=== PATIENT | male | born 1995 | race African-American/Black ===

== ENCOUNTER 2017-01-16 17:54 | Emergency (ER) | payer MEDICAID ==
[~2017-01-16] VITALS: Ht 170.2 cm; Wt 69.4 kg
[2017-01-16 18:07] VITALS: BP 120/89
[2017-01-16] MEDS ORDERED: PROMETHAZI6.25 MG/1 ORAL (18:21)
[2017-01-16] MEDS ORDERED: AMOXICILLIN500 MG ORAL (18:21)
[2017-01-16] MEDS ORDERED: PROAIR HFA8.5 GM INH (18:21)
[2017-01-16] MEDS ORDERED: PREDNISONE20 MG ORAL (18:21)
[2017-01-16 18:42] VITALS: BP 120/89
--- NOTE | 2017-01-16 19:36 | Emergency Room Report ---
History of Present Illness General Chief Complaint: Upper Respiratory Illness Source: Patient Present Illness [facility] The patient is a 21-year-old male presenting for 2 weeks of subjective fevers, chills, productive cough. He denies any recent travel or sick contacts. Pain is an 8/10 dull ache to the back of the throat and does not radiate. Worse with cough. He denies any other symptoms including nausea, vomiting, neck pain or stiffness, rash Allergies: Coded Allergies: No Known Allergies (Unverified , 11/03/12) Patient History Past Medical History: see triage record Pertinent Family History: none Reviewed Nursing Documentation: PMH: Agreed, PSxH: Agreed Nursing Documentation-PMH Past Medical History: No History, Except For Review of Systems All Other Systems: negative except mentioned in HPI Physical Exam Vital Signs Date Time Temp Pulse Resp B/P (MAP) Pulse Ox O2 Delivery O2 Flow Rate FiO2 01/16/17 18:07 98.6 80 17 120/89 99 Room Air Sp02 EP Interpretation: reviewed, normal General Appearance: no apparent distress, alert, GCS 15, non-toxic Head: normocephalic, atraumatic Eyes: bilateral eye normal inspection, bilateral eye PERRL ENT: hearing grossly normal, no angioedema, uvula midline, nasal congestion, tonsillar swelling, pharyngeal erythema Neck: full range of motion, supple/symm/no masses Respiratory: chest non-tender, lungs clear, normal breath sounds, speaking full sentences Cardiovascular #1: regular rate, rhythm, no edema Musculoskeletal: back normal, gait/station normal, normal range of motion, non- tender Neurologic: alert, oriented x3, responsive, motor strength/tone normal, sensory intact, speech normal Psychiatric: judgement/insight normal, memory normal, mood/affect normal, no suicidal/homicidal ideation Skin: normal color, no rash, warm/dry, well hydrated Lymphatic: adenopathy - cervical Medical Decision Making PA Attestation Dr. Kuhn is my supervising physician. Patient management was discussed with my supervising physician Diagnostic Impression: Primary Impression: Pharyngitis, acute Qualified Codes: J02.9 - Acute pharyngitis, unspecified Additional Impression: Asthma Qualified Codes: J45.20 - Mild intermittent asthma, uncomplicated ER Course The patient is a 21-year-old male presenting for 2 weeks of subjective fevers, chills, productive cough. Differential diagnosis include but not limited to pharyngitis, sinusitis, AOM, bronchitis, PNA Physical exam: Vitals within normal limits. Afebrile. No apparent distress HEENT exam: There is bilateral tonsillar edema, erythema. Uvula midline. Moist mucous membranes. There is bilateral cervical lymphadenopathy. Lungs are clear to auscultation bilaterally Skin is warm and dry. No rash The patient will be discharged home and is given ER precautions. He will be treated for asthma and pharyngitis. Patient will followup with primary care Last Vital Signs Date Time Temp Pulse Resp B/P (MAP) Pulse Ox O2 Delivery O2 Flow Rate FiO2 01/16/17 18:42 98.6 80 17 120/89 99 Room Air Status: improved Disposition: HOME, SELF-CARE Condition: Improved Scripts Amoxicillin* (AMOXIL*) 500 Mg Capsule 500 MG ORAL Q12HR, #20 CAP Prov: EOL MCGINNIS P.A. 01/16/17 Promethazine Hcl (PROMETHAZINE HCL*) 6.25 Mg/5 Ml Syrup 5 ML ORAL Q8H, #120 ML 0 Refills Prov: ELO MCGINNIS P.A. 01/16/17 Prednisone* (PREDNISONE*) 20 Mg Tablet 20 MG ORAL DAILY, #4 TAB 0 Refills Prov: ELO MCGINNIS P.A. 01/16/17 Albuterol Sulfate* (PROAIR HFA*) 8.5 Gm Hfa.aer.ad 2 PUFFS INH Q6H, #8.5 GM 0 Refills Prov: ELO MCGINNIS P.A. 01/16/17 Referrals: [facility] [place],REFERRING (PCP) Patient Instructions: Asthma, Adult, Pharyngitis Additional Instructions: I discussed my findings with the patient. All questions and concerns have been answered. Treatment and medication compliance have been addressed. I advised the patient that they need to follow up with PMD in 3-5 days. Return to ED if pain remains or worsens, cough worsens or remains, you notice blood in your sputum, you notice wheezing, you experience a fever, or if needed for any reason. Patient verbalized understanding of discharge instructions. ELO MCGINNIS Jan 16, 2017 19:36
== END 2017-01-16 18:42 | disposition home or self-care (01) ==
LOC: EMR 18:25
DX: J02.9 Acute pharyngitis, unspecified (principal)
CPT/HCPCS: 99284

== ENCOUNTER 2018-03-14 13:42 | Emergency (ER) | payer MEDICAID ==
[~2018-03-14] VITALS: Ht 172.7 cm; Wt 77.1 kg
[~2018-03-14 13:42] MED LIST: AMOXICILLIN500 MG ORAL; PREDNISONE20 MG ORAL; PROAIR HFA8.5 GM INH; PROMETHAZI6.25 MG/1 ORAL
[2018-03-14] MEDS ORDERED: NKM (13:48)
[2018-03-14 13:51] VITALS: BP 145/82
--- NOTE | 2018-03-14 14:03 | Emergency Room Report ---
History of Present Illness General Chief Complaint: Upper Extremity Injury Source: Patient Present Illness HPI 23-year-old male presents to the emergency department complaining of 7 out of 10 in severity right shoulder pain that has been persistent times one week. Patient reports he felt the pain after playing basketball one day. Patient states she is right-hand dominant he denies trauma or fall. Patient reports achy dull pain he denies bony tenderness. Denies numbness tingling or loss of sensation or gross motor movements of the extremities, incontinence of bowel or bladder. Denies CP, Palpitations, LOC, AMS, dizziness or motor weakness. Allergies: Coded Allergies: No Known Allergies (Unverified , 11/03/12) Patient History Past Medical History: see triage record Past Surgical History: none Pertinent Family History: none Reviewed Nursing Documentation: PMH: Agreed; PSxH: Agreed Nursing Documentation-PMH Past Medical History: No History, Except For Review of Systems All Other Systems: negative except mentioned in HPI Physical Exam Vital Signs Date Time Temp Pulse Resp B/P (MAP) Pulse Ox O2 Delivery O2 Flow Rate FiO2 03/14/18 13:46 98.2 85 20 145/82 97 Room Air Sp02 EP Interpretation: reviewed, normal General Appearance: no apparent distress, alert, GCS 15, non-toxic Head: normocephalic, atraumatic Eyes: bilateral eye normal inspection, bilateral eye PERRL ENT: hearing grossly normal, normal voice Neck: full range of motion Respiratory: lungs clear, normal breath sounds, speaking full sentences Cardiovascular #1: regular rate, rhythm, normal capillary refill Cardiovascular #2: 2+ radial (R), 2+ radial (L) Rectal: deferred Genitourinary: normal inspection Musculoskeletal: back normal, gait/station normal, normal range of motion, tender - TTP to the shoulder/axilla musculature and the pectoralis, no bony ttp , FROM with some mild discomfort, no obvious deformity, step-off, crepitus or palpable masses. Neurologic: alert, oriented x3, responsive, motor strength/tone normal, sensory intact, normal gait, speech normal, grossly normal Psychiatric: judgement/insight normal Skin: normal color, no rash, warm/dry, well hydrated Lymphatic: no adenopathy Medical Decision Making PA Attestation Dr. Benitez is my supervising Physician whom patient management has been discussed with. Diagnostic Impression: Primary Impression: Right shoulder injury Qualified Codes: S49.91XA - Unspecified injury of right shoulder and upper arm , initial encounter Additional Impression: Rotator cuff injury Qualified Codes: S46.001A - Unspecified injury of muscle(s) and tendon(s) of the rotator cuff of right shoulder, initial encounter ER Course 23-year-old male presents to the emergency department complaining of 7 out of 10 in severity right shoulder pain that has been persistent times one week. Patient reports he felt the pain after playing basketball one day. Patient states she is right-hand dominant he denies trauma or fall. Patient reports achy dull pain he denies bony tenderness. Denies numbness tingling or loss of sensation or gross motor movements of the extremities, incontinence of bowel or bladder. Denies CP, Palpitations, LOC, AMS, dizziness or motor weakness. Ddx considered but are not limited to Fracture, dislocation, contusion, Sprain/ Strain/Spasm rotator cuff injury just to name a few. Vital signs: are WNL, pt. is afebrile H&PE are most consistent with musculoskeletal injury will perform imaging to r/ o fractures/dislocations. ORDERS: - X-ray not warranted at this time, FROM, and no bony ttp ED INTERVENTIONS: -- Right arm Sling applied by pharmacy technician assistant. Pt. remains neurovascularly intact. -I do not identify an emergent condition at this time. With current presentation , pt. is stable for close outpatient follow up and conservative treatment. D/ w pt. to return promptly to ED with worsening or new symptoms.- Pt. verbalizes' understanding and agreement with proposed treatment plan. DISCHARGE: At this time pt. is stable for d/c to home. Will provide printed patient care instructions, and any necessary prescriptions. Care plan and follow up instructions have been discussed with the patient prior to discharge. Last Vital Signs Date Time Temp Pulse Resp B/P (MAP) Pulse Ox O2 Delivery O2 Flow Rate FiO2 03/14/18 13:51 98.2 79 19 145/82 97 Room Air Disposition: HOME, SELF-CARE Condition: Stable Scripts Ibuprofen* (MOTRIN*) 800 Mg Tablet 800 MG ORAL THREE TIMES A DAY for 7 Days, #21 TAB 0 Refills Prov: Vivian Nicholson 03/14/18 Patient Instructions: Rotator Cuff Tendinitis, Shoulder Pain, [id number] Additional Instructions: Take medications as directed. Follow up with a Primary Care Provider in 3-5 days, even if your symptoms have resolved. --Please review list of primary care clinics, if you do not already have a primary care provider Return sooner to ED if new symptoms occur, or current symptoms become worse. - Please note that this Emergency Department Report was dictated using [email or web address] technician technology software, occasionally this can lead to erroneous entry secondary to interpretation by the dictation equipment. Vivian Nicholson Mar 14, 2018 14:03
[2018-03-14] MEDS ORDERED: IBUPROFEN800 MG ORAL (14:11)
[2018-03-14 14:24] VITALS: BP 135/75
== END 2018-03-14 14:25 | disposition home or self-care (01) ==
LOC: EMR 13:58
DX: S46.001A Unspecified injury of muscle(s) and tendon(s) of the rotator cuff of right shoulder, initial encounter (principal); Y93.67 Activity, basketball; Y92.9 Unspecified place or not applicable
CPT/HCPCS: 99282

== ENCOUNTER 2018-06-14 19:38 | Emergency (ER) | payer MEDICAID ==
[~2018-06-14] VITALS: Ht 172.7 cm; Wt 81.6 kg
[~2018-06-14 19:38] MED LIST changes: +IBUPROFEN800 MG ORAL; +NKM
[2018-06-14 19:51] VITALS: BP 142/91
[2018-06-14] MEDS ORDERED: AMOXICILLIN500 MG ORAL (20:12)
[2018-06-14] MEDS ORDERED: ALBUTEROL SULF8.5 GM INH (20:12)
[2018-06-14] MEDS ORDERED: PROMETHAZINE-D118 ML ORAL (20:12)
[2018-06-14 20:21] VITALS: BP 142/91
--- NOTE | 2018-06-15 21:59 | Emergency Room Report ---
History of Present Illness General Chief Complaint: Flu Like Symptoms Source: Patient Present Illness HPI 23-year-old male presents ED for evaluation. Patient complaining of cough and congestion 2 weeks. Cough is productive with yellowish phlegm. Notes chest tightness. States he had history of asthma as a child. Does not have an inhaler at this time. Denies fevers or chills. Denies sore throat. Denies sick contacts or recent travel. States that she tried [id number] medication without relief. No other aggravating relieving factors. Denies any other associated symptoms Allergies: Coded Allergies: No Known Allergies (Unverified , 06/14/18) Patient History Past Medical History: none Past Surgical History: none Pertinent Family History: none Social History: Denies: smoking, alcohol use, drug use Immunizations: UTD Reviewed Nursing Documentation: PMH: Agreed; PSxH: Agreed Nursing Documentation-PMH Past Medical History: No Stated History Review of Systems All Other Systems: negative except mentioned in HPI Physical Exam Vital Signs Date Time Temp Pulse Resp B/P (MAP) Pulse Ox O2 Delivery O2 Flow Rate FiO2 06/14/18 19:40 99.0 62 16 142/91 06/14/18 19:51 Room Air 06/14/18 19:51 97 Sp02 EP Interpretation: reviewed, normal General Appearance: no apparent distress, alert, GCS 15, non-toxic Head: normocephalic, atraumatic Eyes: bilateral eye normal inspection, bilateral eye PERRL ENT: hearing grossly normal, normal pharynx, no angioedema, normal voice Neck: full range of motion, supple/symm/no masses Respiratory: chest non-tender, lungs clear, normal breath sounds, speaking full sentences Cardiovascular #1: regular rate, rhythm, no edema Cardiovascular #2: 2+ carotid (R), 2+ carotid (L), 2+ radial (R), 2+ radial (L) , 2+ dorsalis pedis (R), 2+ dorsalis pedis (L) Gastrointestinal: normal bowel sounds, non tender, soft, non-distended, no guarding, no rebound Rectal: deferred Genitourinary: normal inspection, no CVA tenderness Musculoskeletal: back normal, gait/station normal, normal range of motion, non- tender Neurologic: alert, oriented x3, responsive, motor strength/tone normal, sensory intact, speech normal Psychiatric: judgement/insight normal, memory normal, mood/affect normal, no suicidal/homicidal ideation Reflexes: 3+ bicep (R), 3+ bicep (L), 3+ tricep (R), 3+ tricep (L), 3+ knee (R) , 3+ knee (L) Skin: normal color, no rash, warm/dry, well hydrated Lymphatic: no adenopathy Medical Decision Making Diagnostic Impression: Primary Impression: Atypical pneumonia ER Course Hospital Course 23-year-old male presents ED complaining of congestion and cough x2 weeks Differential diagnoses include: URI, pharyngitis, otitis media, asthma Clinical course Patient placed on stretcher. After initial history, physical exam reveals a male in no acute distress. Bilateral TM unremarkable. No pharyngeal erythema. No tonsillar exudates. No lymphadenopathy. lungs clear. abdomen soft. Given persistence of symptoms we will treat as atypical pneumonia. We'll discharge with antibiotics. Safe for discharge with close patient follow up. We'll provide referrals Diagnosis - atypical pneumonia Stable and discharged home with Rx amoxicillin, promethazine/codeine, albuterol. Instructed to followup with PMD. Return to ED if symptoms recur or worsen Last Vital Signs Date Time Temp Pulse Resp B/P (MAP) Pulse Ox O2 Delivery O2 Flow Rate FiO2 06/14/18 20:21 99.0 78 16 142/91 97 Room Air Status: improved Disposition: HOME, SELF-CARE Condition: Stable Scripts Albuterol Sulfate* (ALBUTEROL SULFATE MDI*) 8.5 Gm Hfa.aer.ad 2 PUFF INH Q6H, #1 EA 0 Refills Prov: Sundeep Kuhn MD 06/14/18 D-Methorphan Hb/Prometh Hcl* (PROMETHAZINE-DM SYRUP*) 118 Ml Syrup 5 ML ORAL Q6H PRN for For Cough, #118 ML 0 Refills Prov: Sundeep Kuhn MD 06/14/18 Amoxicillin* (AMOXIL*) 500 Mg Capsule 500 MG ORAL THREE TIMES A DAY, #21 CAP Prov: Sundeep Kuhn MD 06/14/18 Referrals: [facility]ERR[facility] (PCP) [facility] Zhane Abreu [facility] Patient Instructions: Community-Acquired Pneumonia, Adult, Toll-df-Ftsp Sundeep Kuhn MD Jun 15, 2018 21:59
== END 2018-06-14 20:20 | disposition home or self-care (01) ==
LOC: EMR 19:55
DX: J18.9 Pneumonia, unspecified organism (principal)
CPT/HCPCS: 99283

== ENCOUNTER 2018-06-15 08:45 | Emergency (ER) | payer MEDICAID ==
[~2018-06-15] VITALS: Ht 172.7 cm; Wt 81.6 kg
[~2018-06-15 08:45] MED LIST changes: +ALBUTEROL SULF8.5 GM INH; +PROMETHAZINE-D118 ML ORAL
[2018-06-15 08:53] VITALS: BP 148/95
--- NOTE | 2018-06-15 09:09 | Emergency Room Report ---
History of Present Illness General Chief Complaint: Upper Respiratory Illness Source: Patient Present Illness HPI Patient presents with complaints of cough Reports that he has pain to his back area He feels secondary to the increased cough Denies any chest pain he reports that he had coughed up increased phlegm denies any abdominal pain denies any neck pain or photophobia Denies any recent travel denies any pleurisy Patient reports that he was previously at [facility] However has not been improved Allergies: Coded Allergies: No Known Allergies (Unverified , 06/14/18) Patient History Past Medical History: see triage record Pertinent Family History: none Reviewed Nursing Documentation: PMH: Agreed; PSxH: Agreed Nursing Documentation-PMH Past Medical History: No Stated History Review of Systems All Other Systems: negative except mentioned in HPI Physical Exam Vital Signs Date Time Temp Pulse Resp B/P (MAP) Pulse Ox O2 Delivery O2 Flow Rate FiO2 06/15/18 08:53 98.1 84 18 148/95 96 Room Air Sp02 EP Interpretation: reviewed, normal General Appearance: well appearing, no apparent distress Head: normocephalic, atraumatic Eyes: bilateral eye PERRL, bilateral eye EOMI ENT: hearing grossly normal, normal pharynx, TMs + canals normal, uvula midline Neck: full range of motion, supple, no meningismus, no bony tend Respiratory: lungs clear, normal breath sounds, no rhonchi, no respiratory distress, no retraction, no accessory muscle use Cardiovascular #1: normal peripheral pulses, regular rate, rhythm, no edema, no gallop, no JVD, no murmur Gastrointestinal: normal bowel sounds, non tender, soft, no mass, no organomegaly, non-distended, no guarding, no hernia, no pulsatile mass, no rebound Genitourinary: no CVA tenderness Musculoskeletal: normal inspection Neurologic: oriented x3, responsive, copy messenger III-XII nml as tested, motor strength/ tone normal, sensory intact Psychiatric: mood/affect normal Skin: normal color, no rash, warm/dry, palpation normal Lymphatic: normal inspection, no adenopathy Medical Decision Making Diagnostic Impression: Primary Impression: Upper respiratory infection Additional Impression: Cough ER Course Patient's previous medical presentation was reviewed patient appears to have been placed on amoxicillin and also provided with promethazine Discussing with the patient he reports that he was given medications yesterday however he was not able to fill the medication X-ray today does not show any acute pathology patient is encouraged to contact different pharmacy follow-up closely Chest X-Ray Diagnostic Results Chest X-Ray Diagnostic Results : Chest X-Ray Ordered: Yes # of Views/Limited/Complete: 1 View Indication: Shortness of Breath EP Interpretation: Yes Interpretation: no consolidation, no effusion, no pneumothorax Impression: No acute disease Electronically Signed by: Martin Benitez DO Last Vital Signs Date Time Temp Pulse Resp B/P (MAP) Pulse Ox O2 Delivery O2 Flow Rate FiO2 06/15/18 09:02 84 18 Room Air 06/15/18 08:53 98.1 148/95 96 Status: improved Disposition: HOME, SELF-CARE Condition: Improved Referrals: [facility]ERR[facility] (PCP) Additional Instructions: Patient is provided with the discharge instructions notified to follow up with primary doctor in the next 2-3 days otherwise return to the er with any worsening symptoms. Please note that this report is being documented using [employer] technology. This can lead to erroneous entry secondary to incorrect interpretation by the dictating instrument. Martin Benitez DO Jun 15, 2018 09:09
[2018-06-15 10:07] VITALS: BP 135/76
--- NOTE | 2018-06-15 10:07 | NUR ---
ER DISCHARGE NOTE: Pt was seen due to coughing. Patient is cleared to be discharged per ERMD, pt is aox4, on room air, with stable vital signs. pt was given dc and prescription instructions, pt was able to verbalize understanding, pt id band removed without complications. pt is able to ambulate with steady gait. pt took all belongings.
--- NOTE | 2018-06-15 10:08 | Diagnostic Imaging Report ---
INDICATION: Cough COMPARISON: Chest x-ray 03/04/10 FINDINGS: Single frontal view demonstrates a normal cardiomediastinal silhouette. Slight increased pulmonary markings can be suggestive of congestion. Lungs are otherwise clear. No pleural effusions. The visualized osseous structures are within normal limits. IMPRESSION: Slight increased pulmonary markings can be suggestive of congestion.
== END 2018-06-15 10:07 | disposition home or self-care (01) ==
LOC: EMR 09:01
DX: J06.9 Acute upper respiratory infection, unspecified (principal)
CPT/HCPCS: 71045; 99283